=== PATIENT | male | born 1970 | race Caucasian/White ===

== ENCOUNTER 2021-05-02 07:10 | Emergency (ER) | payer OTHER ==
[~2021-05-02] VITALS: Ht 165.1 cm; Wt 63.5 kg
[2021-05-02] MEDS ORDERED: CEPHALEXIN500 MG PO (08:04)
[2021-05-02 08:18] VITALS: BP 113/78
== END 2021-05-02 08:20 | disposition home or self-care (01) ==
LOC: M.ERS 07:10
DX: S81.811A Laceration without foreign body, right lower leg, initial encounter (principal); W26.0XXA Contact with knife, initial encounter; Y93.89 Activity, other specified; Y92.89 Other specified places as the place of occurrence of the external cause; Y99.8 Other external cause status